=== PATIENT | male | born 1955 | race Caucasian/White ===

== ENCOUNTER 2017-10-25 05:58 | Day surgery (SDC) | payer BC ==
[2017-10-25] MEDS ORDERED: SLF 3 ML SYR IV (06:00)
[2017-10-25] MEDS ORDERED: PHENYLEPHRINE 2.5% OPHTH SOL 2ML As Ordered (06:28)
[2017-10-25] MEDS ORDERED: TROPICAMIDE 1% OPHTH SOLN 2ML As Ordered (06:28)
[2017-10-25] MEDS ORDERED: CYCLOPENTOLATE 2% OPHTH SOLN 2ML BTL As Ordered (06:28)
[2017-10-25] MEDS ORDERED: OFLOXACIN 0.3 % (OCUFLOX) OPTH SOL 5ML As Ordered (06:28)
[2017-10-25] MEDS: TROPICAMIDE 1% OPHTH SOLN 2ML OS (06:45)
[2017-10-25] MEDS: OFLOXACIN 0.3 % (OCUFLOX) OPTH SOL 5ML OS (06:45)
[2017-10-25] MEDS: PROPARACAINE 0.5% OPHTH SOL 15ML OS (06:48)
[2017-10-25] MEDS: SLF 3 ML SYR IV (06:58)
[2017-10-25] MEDS ORDERED: PHENYLEPHRINE 2.5% OPHTH SOL 2ML OS (07:00)
[2017-10-25] MEDS ORDERED: fentaNYL 100 MCG/2 ML INJECTION (J3010) As Ordered (07:37)
[2017-10-25] MEDS ORDERED: MIDAZOLAM INJ 2 MG/2 ML VIAL (J2250) As Ordered (07:37)
[2017-10-25] MEDS: BALANCED SALT IRRIGATION SOLUTION 500ML BAG (FOR OR EYE MACHINE) As Ordered (07:59)
[2017-10-25] MEDS: LIDOCAINE 0.75%/EPINEPHRINE 0.025% IN BSS 1ML SYR INTRACAMERAL (OR ONLY) As Ordered (07:59)
[2017-10-25] MEDS: ACETYLCHOLINE OPHTH SOLN 1% 2ML (MIOCHOL-E) As Ordered (07:59)
[2017-10-25] MEDS: POVIDONE-IODINE 5% OPHTH PREP SOL 30ML As Ordered (07:59)
[2017-10-25] MEDS: DUOVISC (0.50ML VISCOAT/0.55ML PROVISC) OPHTH KIT As Ordered (07:59)
[2017-10-25] MEDS: CEFUROXIME 1MG/0.1ML INTRACAMERAL INJ As Ordered (07:59)
== END 2017-10-25 08:55 | disposition home or self-care (01) ==
LOC: M SDC 05:58
DX: H25.12 Age-related nuclear cataract, left eye (principal); I10 Essential (primary) hypertension; K21.9 Gastro-esophageal reflux disease without esophagitis; Z87.891 Personal history of nicotine dependence; Z79.899 Other long term (current) drug therapy
CPT/HCPCS: 66984